=== PATIENT | female | born 1990 | race Two or more races ===

== ENCOUNTER 2023-09-24 20:44 | Emergency (ER) | payer OTHER ==
[~2023-09-24] VITALS: Ht 149.9 cm; Wt 65.9 kg
[2023-09-24 21:00] VITALS: BP 134/75; PULSE 109; RESP 24; TEMP 98.6
== END 2023-09-24 22:08 | disposition left against medical advice (07) ==
LOC: EMS 20:49
DX: R07.9 Chest pain, unspecified (principal); R10.9 Unspecified abdominal pain; Z53.21 Procedure and treatment not carried out due to patient leaving prior to being seen by health care provider
CPT/HCPCS: 93005; 99281; Z7502